=== PATIENT | female | born 1940 | race Caucasian/White ===

== ENCOUNTER 2022-05-03 10:33 | Outpatient (RCR) | payer MEDICARE, BC, SELFPAY | END 2022-05-13 23:59 | LOC: DC 10:33 | PROVIDERS: Visit Provider Internal Medicine | DX: E11.40 Type 2 diabetes mellitus with diabetic neuropathy, unspecified (principal); E79.0 Hyperuricemia without signs of inflammatory arthritis and tophaceous disease | CPT/HCPCS: 97802 ==

== ENCOUNTER 2022-06-07 10:30 | Outpatient (RCR) | payer MEDICARE, BC, SELFPAY | END 2022-06-13 23:59 | LOC: DC 10:30 | PROVIDERS: Referring Provider Internal Medicine; Visit Provider Internal Medicine | DX: E11.40 Type 2 diabetes mellitus with diabetic neuropathy, unspecified (principal); E79.0 Hyperuricemia without signs of inflammatory arthritis and tophaceous disease | CPT/HCPCS: 97803; G0108 ==

== ENCOUNTER 2022-07-12 10:33 | Outpatient (RCR) | payer MEDICARE, BC, SELFPAY | END 2022-07-13 23:59 | LOC: DC 10:33 | PROVIDERS: Referring Provider Internal Medicine; Visit Provider Internal Medicine | DX: E11.40 Type 2 diabetes mellitus with diabetic neuropathy, unspecified (principal); E79.0 Hyperuricemia without signs of inflammatory arthritis and tophaceous disease | CPT/HCPCS: 97803 ==

== ENCOUNTER 2022-07-20 14:29 | Outpatient (RCR) | payer MEDICARE, BC, SELFPAY | END 2022-08-13 23:59 | LOC: DC 14:29 | PROVIDERS: Referring Provider Internal Medicine; Visit Provider Internal Medicine | DX: E11.40 Type 2 diabetes mellitus with diabetic neuropathy, unspecified (principal); E79.0 Hyperuricemia without signs of inflammatory arthritis and tophaceous disease | CPT/HCPCS: G0108 ==

== ENCOUNTER 2022-08-25 13:35 | Outpatient (RCR) | payer MEDICARE, BC, SELFPAY | END 2022-09-13 23:59 | LOC: DC 13:35 | PROVIDERS: Referring Provider Internal Medicine; Visit Provider Internal Medicine | DX: E11.40 Type 2 diabetes mellitus with diabetic neuropathy, unspecified (principal); E79.0 Hyperuricemia without signs of inflammatory arthritis and tophaceous disease | CPT/HCPCS: G0109 ==

== ENCOUNTER 2022-09-20 10:30 | Outpatient (RCR) | payer MEDICARE, BC, SELFPAY | END 2022-10-11 23:59 | LOC: DC 10:30 | PROVIDERS: Referring Provider Internal Medicine; Visit Provider Internal Medicine | DX: E11.40 Type 2 diabetes mellitus with diabetic neuropathy, unspecified (principal); E79.0 Hyperuricemia without signs of inflammatory arthritis and tophaceous disease | CPT/HCPCS: G0109 ==

== ENCOUNTER 2022-12-20 13:34 | Outpatient (RCR) | payer MEDICARE, BC, SELFPAY | END 2023-01-11 23:59 | LOC: DC 13:34 | PROVIDERS: Referring Provider Internal Medicine; Visit Provider Internal Medicine | DX: E11.40 Type 2 diabetes mellitus with diabetic neuropathy, unspecified (principal); E79.0 Hyperuricemia without signs of inflammatory arthritis and tophaceous disease | CPT/HCPCS: G0109 ==

== ENCOUNTER 2023-01-23 09:38 | Outpatient (RCR) | payer SELFPAY | END 2023-02-10 23:59 | LOC: NS 09:38 | PROVIDERS: Referring Provider Internal Medicine; Visit Provider Internal Medicine | DX: E11.40 Type 2 diabetes mellitus with diabetic neuropathy, unspecified (principal); E79.0 Hyperuricemia without signs of inflammatory arthritis and tophaceous disease; Z71.3 Dietary counseling and surveillance | CPT/HCPCS: 97802; G0109 ==